=== PATIENT | female | born 1975 | race Caucasian/White ===

== ENCOUNTER 2016-05-18 11:26 | Day surgery (SDC) | payer OTHER ==
[~2016-05-18 11:26] MED LIST: ALBUTEROL0.083 % INH; ALEVE220 MG PO; DULERA 200 MCG/13 GM INH; FOLIC PO; GLUCOTROL5 PO; GLUCPH PO; MTX2.5 PO; PRIN10 PO; SYN125 PO; TOUJEO SQ; VENTOLIN HFA INH
[2016-05-18 11:45] LABS: BASOPHILS 0.3 %; BASOPHILS ABSOLUTE 0.02 10/3/uL (0.0-0.16); EOSINOPHILS 2.9 %; EOSINOPHILS ABSOLUTE 0.23 10/3/uL (0.0-0.53); HEMATOCRIT 39.9 % (36.0-48.0); HEMOGLOBIN 13.4 g/dL (12.0-16.0); IMMATURE GRANULOCYTES 0.1 %; IMMATURE GRANULOCYTES ABSOLUTE 0.01 10/3/uL (0.0-0.11); LYMPHOCYTES 22.9 %; MEAN CORPUS HGB CONC 33.6 g/dL (32.0-36.0); MEAN CORPUSCULAR HEMOGLOB 29.9 pg (26.0-34.0); MEAN CORPUSCULAR VOLUME 89.1 fL (80-100); MEAN PLATELET VOLUME 11.3 fL (9.2-13.0); MONOCYTES 5.2 %; MONOCYTES ABSOLUTE 0.41 10/3/uL (0.21-1.20); NEUTROPHILS 68.6 %; NEUTROPHILS ABSOLUTE 5.39 10/3/uL (2.02-8.40); PLATELET COUNT 228 10/3/uL (150-400); RED CELL COUNT 4.48 10/6/uL (4.0-5.6); WHITE BLOOD CELLS 7.9 10/3/uL (4.5-10.5)
[2016-05-18 11:46] LABS: MANUAL DIFF NO %
[2016-05-18 11:53] LABS: INTERNATIONAL NORMAL RATI 1.1 UNITS (-)
[2016-05-18 11:54] LABS: PARTIAL THROMBO TIME 26.3 SEC (22.5-37.2)
== END 2016-05-18 23:59 | disposition home health service (06) ==
LOC: DMU 11:26
PROVIDERS: Internal Medicine Critical Care Medicine
DX: Z53.9 Procedure and treatment not carried out, unspecified reason (principal); R56.9 Unspecified convulsions; I10 Essential (primary) hypertension; J44.9 Chronic obstructive pulmonary disease, unspecified; J45.909 Unspecified asthma, uncomplicated; M06.9 Rheumatoid arthritis, unspecified; E11.9 Type 2 diabetes mellitus without complications; Z98.890 Other specified postprocedural states; Z88.8 Allergy status to other drugs, medicaments and biological substances
CPT/HCPCS: 85025; 85610; 85730